=== PATIENT | female | born 1935 | race Caucasian/White ===

== ENCOUNTER 2021-07-27 16:02 | Emergency (ER) | payer MEDICARE, OTHER ==
[2021-07-27 18:37] LABS: BASOPHIL 0.3 % (0-2); HCT 37.1 % (37.0-47.0); HGB 11.8 g/dl (12.5-16.0); LYMPHOCYTE 6.5 % (15-48); MCH 31.6 pg (25.0-31.0); MCHC 31.8 g/dL (32.0-36.0); MCV 99.2 fL (78.0-100.0); MONOCYTE 7.7 % (0-12); MPV 10.9 fL (6.0-9.5); NEUTROPHIL 83.2 % (41-80); NRBC 0.2; PLT 121 K/uL (150-400); RBC 3.74 M/uL (4.20-5.40); WBC 13.2 K/uL (4.0-10.5)
[2021-07-27 18:52] LABS: BUN/CREAT RATIO (CALC) 31.5 RATIO; CREATININE 1.08 mg/dL (0.51-0.95); POTASSIUM 3.4 mmol/L (3.5-5.1)
[2021-07-27 19:31] LABS: BILIRUBIN NEGATIVE (NEGATIVE); BLOOD TRACE-INTACT Ery/uL (NEGATIVE); CLARITY CLEAR (CLEAR); COLOR YELLOW (YELLOW); GLUCOSE (U) NORMAL (NORMAL); LEUKOCYTES NEGATIVE Leu/uL (NEGATIVE); NITRITE NEGATIVE (NEGATIVE); PROTEIN NEGATIVE (NEGATIVE); UROBILINOGEN 0.2 mg/dL (0.2-1.0); pH 5.5 (5.0-9.0)
[2021-07-27 19:37] LABS: BACTERIA TRACE
[2021-07-27 19:38] LABS: URINARY RBC RARE
[2021-07-27] MEDS ORDERED: ULTRAM50 MG PO (21:11)
== END 2021-07-27 22:28 | disposition home or self-care (01) ==
LOC: FER 16:02
PROVIDERS: Nurse Practitioner Family
DX: S20.212A Contusion of left front wall of thorax, initial encounter (principal); S90.01XA Contusion of right ankle, initial encounter; R60.0 Localized edema; Z88.6 Allergy status to analgesic agent; W01.0XXA Fall on same level from slipping, tripping and stumbling without subsequent striking against object, initial encounter; Y92.009 Unspecified place in unspecified non-institutional (private) residence as the place of occurrence of the external cause
CPT/HCPCS: 36415; 70450; 71101; 72125; 72131; 73502; 73590; 80048; 81001; 82550; 84484; 85025; 93005; 94010

== ENCOUNTER → 2022-05-28 | Day surgery (SDC) | payer MEDICARE, OTHER ==
[~2022-05-28] VITALS: Ht 165.1 cm; Wt 68.0 kg
[~2022-05-28] MED LIST: ACETAMINOPHEN500 M1 PO; ALTACE10 MG PO; COREG25 MG PO; LASIX40 MG PO; NORCO 5-325 TA1 EACH PO; POTASSIUM CHLO20 ME1 PO; PRAVASTATIN SOD40 MG PO; SYNTHROID125 MCG PO; ULTRAM50 MG PO; VITAMIN D325 MC1 PO; XARELTO10 MG PO
[2022-05-28 10:51] LABS: BUN/CREAT RATIO (CALC) 41.2 RATIO; CREATININE 0.85 mg/dL (0.51-0.95); POTASSIUM 4.1 mmol/L (3.5-5.1)
== END | disposition home or self-care (01) ==
LOC: FAS 09:49
PROVIDERS: Anesthesiology
DX: C43.59 Malignant melanoma of other part of trunk (principal); I10 Essential (primary) hypertension; I65.21 Occlusion and stenosis of right carotid artery; Z82.49 Family history of ischemic heart disease and other diseases of the circulatory system; Z79.01 Long term (current) use of anticoagulants
CPT/HCPCS: 36415; 80048; J0690; J2704; J3010; J7120